=== PATIENT | female | born 1995 | race Caucasian/White ===

== ENCOUNTER 2016-08-12 14:31 | Emergency (ER) | payer OTHER ==
[~2016-08-12 14:31] MED LIST: PEPCID40 MG PO
--- NOTE | 2016-08-12 16:14 | ED CLINICAL REPORT ---
Clinical Report - Physicians/Mid Levels [facility] [address] [place] [address] 08/12/2016 14:33 [id number] Time Seen: 14:49 Mar 2016. Arrived- By private vehicle. Historian- patient. HISTORY OF PRESENT ILLNESS Chief Complaint: VOMITING. This started just prior to arrival and is still present. No recent travel. She has had nausea, vomiting and bloody stools. The illness is described as mild. (Patient reports dark blood emesis, as well as dark blood from rectum. Stool otherwise light brown. Reports some mild pain. He denies history of similar. Reports family history of chrohs). REVIEW OF SYSTEMS No fever, difficulty with urination, headache, dizziness or difficulty breathing. All systems otherwise negative, except as recorded above. PAST HISTORY No history of peptic ulcer. ADDITIONAL NOTES The nursing notes have been reviewed. PHYSICAL EXAM Vital Signs: 08/12/2016 14:44 BP: 140/75. HR: 93. RR: 16. O2 saturation: 95%. Temp: 98.4 F. Appearance: Alert. Eyes: Eyes normal inspection. ENT: Ears normal. CVS: Normal heart rate and rhythm. Heart sounds normal. Respiratory: No respiratory distress. Breath sounds normal. Abdomen: Soft and nontender. No mass. No abdominal tenderness, rebound tenderness or distention. Back: Normal inspection. No CVA tenderness. Rectal: Heme-positive stool; blood streaks present in the stool; hemoccult personnel quality assurance auditor check passed. (POC test reference range: negative). Skin: Skin warm. Normal skin color. Neuro: Oriented X 3. LABS, X-RAYS, AND EKG Laboratory Tests: UA-Culture if indicated: (PETER: 08/12/2016 15:00) ( MsgRcvd 08/12/2016 15:34) Final results Test Result Flag Units (Reference) URINE COLOR YELLOW URINE APPEARANCE CLEAR URINE GLUCOSE NEGATIVE (NEGATIVE) URINE BILIRUBIN NEGATIVE (NEGATIVE) URINE KETONE NEGATIVE (NEGATIVE) URINE SPECIFIC GRAVITY 1.020 (1.010-1.030) URINE PH 8.0 (5.0-8.0) URINE PROTEIN NEGATIVE (NEGATIVE) URINE UROBILINOGEN 0.2 EU/dL (0.2-1.0) URINE NITRITE NEGATIVE (NEGATIVE) URINE BLOOD NEGATIVE (NEGATIVE) URINE LEUK ESTERASE NEGATIVE (NEGATIVE) URINE RBC NONE SEEN rbc/hpf (0-1) URINE WBC 3-5 wbc/hpf (0-1) URINE EPITHELIAL CELLS 5-10 EPI/hpf (0-5) URINE BACTERIA FEW (1+) (NONE SEEN) URINE COMMENT CULT NOT INDICATED URINE CULTURES ARE SET-UP BASED ON THE FOLLOWING CRITERIA:POSITIVE NITRITEPOSITIVE LEUKOCYTE ESTERASEGREATER THAN 10 WHITE BLOOD CELLSMODERATE (2+) OR GREATER BACTERIA Urine: (PETER: 08/12/2016 15:00) ( [facility] 08/12/2016 15:17) Final results Test Result Flag Units (Reference) URINE NEGATIVE CBC w Diff: (PETER: 08/12/2016 14:58) ( [facility] 08/12/2016 15:10) Final results Test Result Flag Units (Reference) WHITE BLOOD COUNT 7.8 K/uL (4.5-11.5) RED BLOOD COUNT 4.35 M/uL (4.00-5.20) HEMOGLOBIN 13.0 gm/dL (12.0-16.0) HEMATOCRIT 37.7 % (36.0-46.0) MEAN CELL VOLUME 87 fL (80-100) MEAN CORPUSCULAR HGB 30 pg (26-34) MEAN CORPUSCULAR HGB CONC 34 g/dL (31-37) RED CELL DISTRIBUTION WIDTH 12.6 % (11.6-14.8) PLATELET COUNT 256 K/uL (150-400) NEUTROPHIL % 72.6 % (50-75) LYMPH % 21.2 L % (25-40) MONO % 5.6 % (3-14) EOSINOPHIL % 0.3 % (0-4) BASOPHIL % 0.3 % (0-2) PT with INR: (PETER: 08/12/2016 14:58) ( [facility] 08/12/2016 15:45) Final results Test Result Flag Units (Reference) INR 1.0 (0.8-1.2) Low Intensity Therapy: INR 1.5-2.0 PT range 18.5-23.1Mod.Intensity Therapy: INR 2.0-3.0 PT range 23.1-31.5High Intensity Therapy: INR 2.5-3.5 PT range 27.4-35.5High Intensity Therapy 2: INR 3.0-4.0 PT range 31.5-39.3 APTT 29 SECONDS (24-34) CMP: (PETER: 08/12/2016 14:58) ( MsgRcvd 08/12/2016 16:01) Final results Test Result Flag Units (Reference) GLUCOSE 94 mg/dL (70-110) BUN 15 mg/dL (7-18) CREATININE 0.7 mg/dL (0.6-1.3) Estimated GFR >60 mL/min Estimated GFR- >60 mL/min Note: Persistent reduction over 3 months in eGFR<60 mL/min/1.73 m2 defines CKD. Patients with eGFR values>=60 mL/min/1.73 m2 may also have CKD if evidence ofpersistent proteinuria. Additional information may be foundat www.kidney.org. SODIUM 141 mmol/L (136-145) POTASSIUM 3.4 L mmol/L (3.5-5.1) CHLORIDE 105 mmol/L (98-107) CARBON DIOXIDE 25 mmol/L (21-32) CALCIUM 8.9 mg/dL (8.5-10.1) TOTAL PROTEIN 7.1 g/dL (6.4-8.2) ALBUMIN 3.7 g/dL (3.3-5.0) BILIRUBIN, TOTAL 0.2 mg/dL (0.0-1.0) ALKALINE PHOSPHATASE 48 U/L (46-116) AST (SGOT) 24 U/L (15-37) ALT (SGPT) 38 U/L (12-78) . PROGRESS AND PROCEDURES Course of Care: patient with Hemoccult-positive from rectum, however gastric content via NG tube with no sign of bleeding. Patient is stable. Discuss treatment options at this time, given strong family history of Crohn's, patient should follow with primary care doctor, possible GI, if the symptoms continue. H&H stable at this time. Vital signs stable. Patient euvolemic. To follow up outpatient. No signs of surgical abdomen. Patient is pain-free. 08/12/2016 16:14 BP: 135/80. HR: 88. RR: 16. O2 saturation: 98%. Temp: 98.3 F. Patient is stable. Symptoms better. Patient/family counseled. Disposition: Discharged. CLINICAL IMPRESSION Minor GI bleed with hematemesis. INSTRUCTIONS Drink plenty of fluids. Avoid alcohol and NSAIDS. NSAIDS include aspirin, ibuprofen (Advil) and naproxen (Aleve). Avoid fatty, fried/greasy, lactose-containing (such as milk, cheese and ice cream), salty and spicy foods. Prescription Medications: Zofran (orally disintegrating tablets) 4 mg: take 1 orally every 6 hours for 3 days as needed for nausea and vomiting. Dispense ten (10). No refill. Substitution is permissible. Protonix 40 mg tablets: take 1 tablet orally for 2 weeks. Dispense fourteen (14). No refill. OTC Medications: Take acetaminophen (Tylenol, Datril, etc.) according to label instructions. Available over the counter. Follow-up: Follow up with doctor Sunday. (Electronically signed by Samantha Montague P.A.-C 08/12/2016 16:17)
--- NOTE | 2016-08-12 16:14 | ED ORDER SUMMARY ---
..... Patient: GUCCI HEADLEY OrderSheet [facility] VisitID: [id number] [place] [address] 20y, F Registration Date/Time: 08/12/2016 ORDER SHEET Weight: 81.6 kg (stated) Allergies: No Known Drug Allergy GENERAL ORDERS: NG Tube (lavage till clear) (14:49 08/12/2016 EKoroleva P.A.-C) (15:32 SReitz R.N.) CBC w Diff Urgent (14:49 08/12/2016 EKoroleva P.A.-C) (Ack 14:51 RKaruga) (15:01 KWilliams R.N.) CMP Urgent (14:49 08/12/2016 EKoroleva P.A.-C) (Ack 14:51 RKaruga) (15:01 KWilliams R.N.) UA-Culture if indicated Urgent (14:49 08/12/2016 EKoroleva P.A.-C) (Ack 14:51 RKaruga) (15:06 KWilliams R.N.) PT with INR Urgent (14:49 08/12/2016 EKoroleva P.A.-C) (Ack 14:51 RKaruga) (15:01 KWilliams R.N.) PTT Urgent (14:49 08/12/2016 EKoroleva P.A.-C) (Ack 14:51 RKaruga) (15:01 KWilliams R.N.) Urine Urgent (14:49 08/12/2016 EKoroleva P.A.-C) (Ack 14:51 RKaruga) (15:06 KWilliams R.N.) MEDICATION ORDERS: IV FLUIDS: IV NS : initial bolus 1000 mL (1000 mL/hr), then 10 mL/hr for X1 (NOW); Devang (14:48 08/12/2016 EKoroleva P.A.-C) (15:07 KWilliams R.N.) ORDER SHEET NOTES: [Electronically signed by Samantha Montague PJoaquinaAJoaquina-C (16:17 08/12/2016)] [Electronically signed by Rossy Xie R.N. (17:08/12/2016)] [Electronically locked/signed by Rossy Xie R.N. (17:08/12/2016)]
--- NOTE | 2016-08-12 16:14 | ED ORDER SUMMARY ---
..... Patient: GUCCI HEADLEY OrderSheet [facility] VisitID: [id number] [place] [address] 20y, F Registration Date/Time: 08/12/2016 ORDER SHEET Weight: 81.6 kg (stated) Allergies: No Known Drug Allergy GENERAL ORDERS: NG Tube (lavage till clear) (14:49 08/12/2016 EKoroleva P.A.-C) (15:32 SReitz R.N.) CBC w Diff Urgent (14:49 08/12/2016 EKoroleva P.A.-C) (Ack 14:51 RKaruga) (15:01 KWilliams R.N.) CMP Urgent (14:49 08/12/2016 EKoroleva P.A.-C) (Ack 14:51 RKaruga) (15:01 KWilliams R.N.) UA-Culture if indicated Urgent (14:49 08/12/2016 EKoroleva P.A.-C) (Ack 14:51 RKaruga) (15:06 KWilliams R.N.) PT with INR Urgent (14:49 08/12/2016 EKoroleva P.A.-C) (Ack 14:51 RKaruga) (15:01 KWilliams R.N.) PTT Urgent (14:49 08/12/2016 EKoroleva P.A.-C) (Ack 14:51 RKaruga) (15:01 KWilliams R.N.) Urine Urgent (14:49 08/12/2016 EKoroleva P.A.-C) (Ack 14:51 RKaruga) (15:06 KWilliams R.N.) MEDICATION ORDERS: IV FLUIDS: IV NS : initial bolus 1000 mL (1000 mL/hr), then 10 mL/hr for X1 (NOW); Devang (14:48 08/12/2016 EKoroleva P.A.-C) (15:07 KWilliams R.N.) ORDER SHEET NOTES: [Electronically signed by Samantha Montague PJoaquinaAJoaquina-C (16:17 08/12/2016)] [Electronically signed by Rossy Xie R.N. (17:08/12/2016)] [Electronically locked/signed by Rossy Xie R.N. (17:08/12/2016)]
--- NOTE | 2016-08-12 16:14 | ED NURSING NOTES ---
Clinical Report - Nurses [facility] [address] [place] [address] 08/12/2016 14:33 Patient: GUCCI HEADLEY TRIAGE Triage time 14:39. Acuity: LEVEL 3. Chief Complaint: VOMITING. 14:48 08/12/16. Alert. No acute distress. SEPSIS SCREEN: Sepsis Screen. Negative (no infection suspected/documented). --14:48 Barbie Shah R.N. 14:44 08/12/16. BP: 140/75. HR: 93. RR: 16. O2 saturation: 95% on room air. Temp: 98.4 F (oral). Pain level now 0/10. --14:48 Barbie Shah R.N. Weight: 81.6 kg stated. Height/Length: 71 inches Per Patient. BMI: 25.1. --14:44 Barbie Shah R.N. Medications None. --14:47 Barbie Shah R.N. Allergies No Known Drug Allergy. --14:47 Barbie Shah R.N. Medication/allergy information source: the patient. --14:48 Barbie Shah R.N. History Arrived by private vehicle. Historian: patient. Primary physician (sidney). ( c/o emesis x1 this morning with dark red blood. States she also had one episode of dark red blood in brown stool this morning. Denies nausea at this time.). This started today. Treatment OBSTETRICAL TECH: None. SOCIAL HX: Never smoker. Alcohol use; consumes four glasses of wine daily. History of drug use: marijuana. ABUSE ASSESSMENT: Abuse assessment: The patient was asked "Do you feel safe in your home?". No report of abuse. FALL RISK ASSESSMENT: Fall risk assessment completed. No fall risk identified. NUTRITIONAL RISK ASSESSMENT: The nutritional risk assessment revealed no deficiencies. FUNCTIONAL ASSESSMENT: Functional assessment: no impairments noted. LEARNING NEEDS ASSESSMENT: The learning needs assessment revealed no barriers. SKIN INTEGRITY ASSESSMENT: Skin integrity risk assessment completed. No skin integrity risk identified. --14:48 Barbie Shah R.N. PAST MEDICAL HX: Last normal menstrual period was 2 weeks ago. Denies current . --14:48 Barbie Shah R.N. PROBLEMS: UTI - Urinary Tract Infection. Abdominal Pain. --14:47 Barbie Shah R.N. ADDITIONAL SURGERIES: Tonsillectomy. --14:47 Barbie Shah R.N. Interventions ID band on patient. To treatment room. --14:48 Barbie Shah R.N. PHYSICAL ASSESSMENT 14:48 08/12/16. Ambulatory to room. GENERAL / NEURO / PSYCH: Alert. Oriented X 4. Appears in no acute distress. HEENT: Mucous membranes are pink. RESPIRATORY: Respirations not labored. CVS: Capillary refill less than 2 seconds. GI / : Abdomen soft and nontender. SKIN: Skin is warm and dry. --14:48 Barbie Shah R.N. NURSING PROGRESS NOTES 14:49 08/12/16. The plan of care for this patient has been created. Patient gowned. Head of bed elevated. Call light placed in reach. Bed placed in lowest position. Brakes of bed on. Patient ready for evaluation- chart flagged. --14:49 Barbie Shah R.N. 14:52 08/12/2016 Site #1 started via IV in the right antecubital space with an 20g angiocath, with aseptic technique and good blood return; one attempt. Blood drawn: rainbow set. Labeled in the presence of the patient and sent to the lab. Saline lock flushed with 10 mL saline. --15:07 Barbie Shah R.N. 15:02 08/12/2016 Started bag #1 1000 mL IV Fluids IV NS (Saline); at 999 mL/hr over 1 hour(s) via site #1. Allergies verified and confirmed 5 rights. IV patency established. IV site checked: no pain, redness, or swelling. IV flushed thoroughly pre- and post-medication administration. --15:07 Barbie Shah R.N. 15:08 08/12/16. Patient ID band checked for patient name and birthdate: patient confirmed. Instructions provided to collect clean catch urine and patient verbalized understanding. Clean catch urine collected with return of yellow-colored cloudy urine; odor is normal; sample sent to lab for urinalysis and HCG. Specimen labeled in the presence of the patient. --15:08 Barbie Shah R.N. 16 fr NG tube inserted in right nostril with no difficulty. Placement confirmed by return of gastric contents. Return: yellow fluid. Tube secured. Attached to low suction. Patient tolerated procedure well. (pt. lavaged until clear. Output 400cc.). --15:32 Rossy Xie R.N. Care transferred and report received (from Joy, RN). --15:32 Rossy Xie R.N. 16:10 08/12/2016 IV Fluids IV NS Discontinued: bag #1 infused. Total amount infused: 1000 mL. --16:14 Rossy Xie R.N. DISPOSITION / DISCHARGE 16:14 08/12/2016 Site #1 removed upon discharge. Catheter intact. Manual pressure and bandaid applied. --16:14 Rossy Xie R.N. 16:14 08/12/16. BP: 135/80. HR: 88. RR: 16. O2 saturation: 98%. Temp: 98.3 F. Pain level now 0/10. --16:15 Rossy Xie R.N. 16:14. Condition at departure: stable. No learning barriers present. Discharge instructions provided and reviewed with the patient. Reviewed medication(s) side effects, precautions, dosing and course information. Prescription(s) given to the patient. Reviewed referral to family practice for followup. Patient verbalized understanding. Written instructions provided in [place]. The patient was discharged home and accompanied by family. She left the Emergency Department ambulatory and via private vehicle. Family member driving. Medication list reviewed and validated. --16:29 Rossy Xie R.N. Departure time: 1614. --16:29 Rossy Xie R.N. Locked/Released at 08/12/2016 17:07 by Rossy Xie R.N.
--- NOTE | 2016-08-12 16:14 | ED CLINICAL REPORT ---
Clinical Report - Physicians/Mid Levels [facility] [address] [place] [address] 08/12/2016 14:33 [id number] Time Seen: 14:49 Mar 2016. Arrived- By private vehicle. Historian- patient. HISTORY OF PRESENT ILLNESS Chief Complaint: VOMITING. This started just prior to arrival and is still present. No recent travel. She has had nausea, vomiting and bloody stools. The illness is described as mild. (Patient reports dark blood emesis, as well as dark blood from rectum. Stool otherwise light brown. Reports some mild pain. He denies history of similar. Reports family history of chrohs). REVIEW OF SYSTEMS No fever, difficulty with urination, headache, dizziness or difficulty breathing. All systems otherwise negative, except as recorded above. PAST HISTORY No history of peptic ulcer. ADDITIONAL NOTES The nursing notes have been reviewed. PHYSICAL EXAM Vital Signs: 08/12/2016 14:44 BP: 140/75. HR: 93. RR: 16. O2 saturation: 95%. Temp: 98.4 F. Appearance: Alert. Eyes: Eyes normal inspection. ENT: Ears normal. CVS: Normal heart rate and rhythm. Heart sounds normal. Respiratory: No respiratory distress. Breath sounds normal. Abdomen: Soft and nontender. No mass. No abdominal tenderness, rebound tenderness or distention. Back: Normal inspection. No CVA tenderness. Rectal: Heme-positive stool; blood streaks present in the stool; hemoccult director of quality check passed. (POC test reference range: negative). Skin: Skin warm. Normal skin color. Neuro: Oriented X 3. LABS, X-RAYS, AND EKG Laboratory Tests: UA-Culture if indicated: (PETER: 08/12/2016 15:00) ( MsgRcvd 08/12/2016 15:34) Final results Test Result Flag Units (Reference) URINE COLOR YELLOW URINE APPEARANCE CLEAR URINE GLUCOSE NEGATIVE (NEGATIVE) URINE BILIRUBIN NEGATIVE (NEGATIVE) URINE KETONE NEGATIVE (NEGATIVE) URINE SPECIFIC GRAVITY 1.020 (1.010-1.030) URINE PH 8.0 (5.0-8.0) URINE PROTEIN NEGATIVE (NEGATIVE) URINE UROBILINOGEN 0.2 EU/dL (0.2-1.0) URINE NITRITE NEGATIVE (NEGATIVE) URINE BLOOD NEGATIVE (NEGATIVE) URINE LEUK ESTERASE NEGATIVE (NEGATIVE) URINE RBC NONE SEEN rbc/hpf (0-1) URINE WBC 3-5 wbc/hpf (0-1) URINE EPITHELIAL CELLS 5-10 EPI/hpf (0-5) URINE BACTERIA FEW (1+) (NONE SEEN) URINE COMMENT CULT NOT INDICATED URINE CULTURES ARE SET-UP BASED ON THE FOLLOWING CRITERIA:POSITIVE NITRITEPOSITIVE LEUKOCYTE ESTERASEGREATER THAN 10 WHITE BLOOD CELLSMODERATE (2+) OR GREATER BACTERIA Urine: (PETER: 08/12/2016 15:00) ( [facility] 08/12/2016 15:17) Final results Test Result Flag Units (Reference) URINE NEGATIVE CBC w Diff: (PETER: 08/12/2016 14:58) ( [facility] 08/12/2016 15:10) Final results Test Result Flag Units (Reference) WHITE BLOOD COUNT 7.8 K/uL (4.5-11.5) RED BLOOD COUNT 4.35 M/uL (4.00-5.20) HEMOGLOBIN 13.0 gm/dL (12.0-16.0) HEMATOCRIT 37.7 % (36.0-46.0) MEAN CELL VOLUME 87 fL (80-100) MEAN CORPUSCULAR HGB 30 pg (26-34) MEAN CORPUSCULAR HGB CONC 34 g/dL (31-37) RED CELL DISTRIBUTION WIDTH 12.6 % (11.6-14.8) PLATELET COUNT 256 K/uL (150-400) NEUTROPHIL % 72.6 % (50-75) LYMPH % 21.2 L % (25-40) MONO % 5.6 % (3-14) EOSINOPHIL % 0.3 % (0-4) BASOPHIL % 0.3 % (0-2) PT with INR: (PETER: 08/12/2016 14:58) ( [facility] 08/12/2016 15:45) Final results Test Result Flag Units (Reference) INR 1.0 (0.8-1.2) Low Intensity Therapy: INR 1.5-2.0 PT range 18.5-23.1Mod.Intensity Therapy: INR 2.0-3.0 PT range 23.1-31.5High Intensity Therapy: INR 2.5-3.5 PT range 27.4-35.5High Intensity Therapy 2: INR 3.0-4.0 PT range 31.5-39.3 APTT 29 SECONDS (24-34) CMP: (PETER: 08/12/2016 14:58) ( MsgRcvd 08/12/2016 16:01) Final results Test Result Flag Units (Reference) GLUCOSE 94 mg/dL (70-110) BUN 15 mg/dL (7-18) CREATININE 0.7 mg/dL (0.6-1.3) Estimated GFR >60 mL/min Estimated GFR- >60 mL/min Note: Persistent reduction over 3 months in eGFR<60 mL/min/1.73 m2 defines CKD. Patients with eGFR values>=60 mL/min/1.73 m2 may also have CKD if evidence ofpersistent proteinuria. Additional information may be foundat www.kidney.org. SODIUM 141 mmol/L (136-145) POTASSIUM 3.4 L mmol/L (3.5-5.1) CHLORIDE 105 mmol/L (98-107) CARBON DIOXIDE 25 mmol/L (21-32) CALCIUM 8.9 mg/dL (8.5-10.1) TOTAL PROTEIN 7.1 g/dL (6.4-8.2) ALBUMIN 3.7 g/dL (3.3-5.0) BILIRUBIN, TOTAL 0.2 mg/dL (0.0-1.0) ALKALINE PHOSPHATASE 48 U/L (46-116) AST (SGOT) 24 U/L (15-37) ALT (SGPT) 38 U/L (12-78) . PROGRESS AND PROCEDURES Course of Care: patient with Hemoccult-positive from rectum, however gastric content via NG tube with no sign of bleeding. Patient is stable. Discuss treatment options at this time, given strong family history of Crohn's, patient should follow with primary care doctor, possible GI, if the symptoms continue. H&H stable at this time. Vital signs stable. Patient euvolemic. To follow up outpatient. No signs of surgical abdomen. Patient is pain-free. 08/12/2016 16:14 BP: 135/80. HR: 88. RR: 16. O2 saturation: 98%. Temp: 98.3 F. Patient is stable. Symptoms better. Patient/family counseled. Disposition: Discharged. CLINICAL IMPRESSION Minor GI bleed with hematemesis. INSTRUCTIONS Drink plenty of fluids. Avoid alcohol and NSAIDS. NSAIDS include aspirin, ibuprofen (Advil) and naproxen (Aleve). Avoid fatty, fried/greasy, lactose-containing (such as milk, cheese and ice cream), salty and spicy foods. Prescription Medications: Zofran (orally disintegrating tablets) 4 mg: take 1 orally every 6 hours for 3 days as needed for nausea and vomiting. Dispense ten (10). No refill. Substitution is permissible. Protonix 40 mg tablets: take 1 tablet orally for 2 weeks. Dispense fourteen (14). No refill. OTC Medications: Take acetaminophen (Tylenol, Datril, etc.) according to label instructions. Available over the counter. Follow-up: Follow up with doctor Sunday. (Electronically signed by Samantha Montague P.A.-C 08/12/2016 16:17)
--- NOTE | 2016-08-12 17:07 | ED MAR SUMMARY ---
..... Medication Administration Record [facility] [address] [place] [address] Patient: GUCCI HEADLEY Visit ID: [id number] 20y, F Weight: 81.6 kg Height/Length: 71 in BMI: 25.1 ALLERGIES: No Known Drug Allergy Start 15:02 08/12/2016 Barbie Shah RAna, Stop 16:10 08/12/2016 Rossy Xie RJoaquinaNJoaquina Medication Administered: IV NS (SALINE), Dose: IV Fluids over 1 hour(s), Rate: 999 mL/hr, Dispensed: 1000 mL bag, Site: #1 right AC. Medication Ordered: IV NS : initial bolus 1000 mL (1000 mL/hr), then 10 mL/hr for X1 (NOW); Devang.
--- NOTE | 2016-08-12 17:07 | ED MED RECONCILIATION SUMMARY ---
Patient: GUCCI HEADLEY Medication Reconciliation Report [facility] VisitID: [id number] [place] [address] 20y, F Registration Date/Time: 08/12/2016 Weight: 81.6 kg Height/Length: 71 in. BMI: 25.1 ALLERGIES: No Known Drug Allergy The patient's Home Medications are listed below: NONE. The source(s) of the original Home Medication information: patient The following Medications were given to the patient in the Emergency Department: IV NS IV Fluids bolus 0, then 999 mL/hr, administered: 08/12/2016 3:02:00 PM The following Medications were prescribed to the patient: Take acetaminophen (Tylenol, Datril, etc.) according to label instructions. Available over the counter. -- Samantha Montague, P.A.-C Zofran (orally disintegrating tablets) 4 mg: take 1 orally every 6 hours for 3 days as needed for nausea and vomiting. Dispense ten (10). No refill. Substitution is permissible. -- Samantha Montague, P.A.-C Protonix 40 mg tablets: take 1 tablet orally for 2 weeks. Dispense fourteen (14). No refill. -- Samantha Montague, P.A.-C
--- NOTE | 2016-08-12 17:07 | ED DISCHARGE INSTRUCTIONS ---
Patient: GUCCI HEADLEY General Instructions [facility] VisitID: [id number] [place] [address] 20y, F Registration Date/Time: 08/12/2016 Minor GI bleed with hematemesis. INSTRUCTIONS Drink plenty of fluids. Avoid alcohol and NSAIDS. NSAIDS include aspirin, ibuprofen (Advil) and naproxen (Aleve). Avoid fatty, fried/greasy, lactose-containing (such as milk, cheese and ice cream), salty and spicy foods. Prescription Medications: Zofran (orally disintegrating tablets) 4 mg: take 1 orally every 6 hours for 3 days as needed for nausea and vomiting. Dispense ten (10). No refill. Substitution is permissible. Protonix 40 mg tablets: take 1 tablet orally for 2 weeks. Dispense fourteen (14). No refill. OTC Medications: Take acetaminophen (Tylenol, Datril, etc.) according to label instructions. Available over the counter. Follow-up: Follow up with doctor Sunday. ADDITIONAL INFORMATION GI Bleeding (Upper), Stable There are signs that you have bled from your upper intestinal tract (esophagus, stomach or upper intestine). This may be due to: Repeated vomiting which may cause a small tear in the lining of the esophagus, An ulcer in the stomach or duodenum (upper intestine) Severe gastritis (from use of alcohol, aspirin or anti-inflammatory drugs) Esophageal varices (enlarged veins in the esophagus) may also cause bleeding like this. Your exam today showed that you have not lost a large amount of blood and your condition is stable. Bleeding from the upper GI tract causes the stool to turn black. Home Care: 1) If your bleeding is due to an ulcer or gastritis, an acid-blocking medicine will help. Unless an acid amna was prescribed (or if you cannot afford one that was prescribed), you may use spau-bgs-emxcief drugs such as Pepcid AC (famotidine), Tagamet (cimetidine) or Zantac (ranitidine). These begin to work within a few hours. Prilosec OTC (omeprazole) is a new type of acid amna which may be more effective. It takes up to four days for its full effect. You may get additional short-term relief by taking antacids (Mylanta or Maalox). It should be taken one hour after meals and at bedtime. Do not take Tagamet (cimetidine), Zantac (ranitidine) or Carafate (sucralfate) within one hour of an antacid. 2) Avoid factors which increase stomach acid. These include cigarettes, caffeine (coffee, raul, teas) and stress. 3) Avoid substances that irritate your stomach. These include aspirin and anti-inflammatory drugs (such as ibuprofen, Advil, Motrin, naproxen, Aleve, Naprosyn), alcohol and spicy foods. Prednisone and related prescription drugs can cause an ulcer. Discuss with your doctor if you are taking these. 4) Take any prescribed medicine as directed to promote healing. 5) If alcohol is a possible cause of your GI bleeding, it is urgent that you talk with your doctor about ways to help you quit. Follow Up with your doctor as advised. Get Prompt Medical Attention if any of the following occur: -- Stomach pain worsens -- Pain appears, worsens or spreads to the neck, back, shoulder or arm -- You vomit blood (red or black color) -- You feel weak or dizzy, or you faint -- You have fever or abdominal swelling -- Red blood in the stool Rectal Bleeding (Stable) Your exam today shows signs of blood in the stool. This is called rectal bleeding, because the blood passes through the rectum. However, the blood may not be coming from the rectum. Blood in the stool may be red or black in color. Red blood in the stool usually comes from the lower gastro-intestinal (GI) tract. This may be due to diverticulosis, polyps, colon inflammation or infection, anal fissure or hemorrhoids. In persons over 50 tumors and cancer of the intestinal tract may first show up as red blood in the stool. Upper GI bleeding causes the stool to turn black. This may occur with bleeding from the esophagus, stomach, duodenum or small intestine. Very small amounts of GI bleeding may not be visible and can only be discovered on a chemical test of the stool. You have not lost a large amount of blood and your condition appears stable at this time. It is very important to have a follow-up exam to determine the exact cause of your bleeding. Home Care: 1) You may resume normal activity as long as you feel well. 2) Avoid aspirin and anti-inflammatory drugs such as ibuprofen (Advil, Motrin) and naproxen (Aleve and Naprosyn). You may use acetaminophen (Tylenol) for pain. [ NOTE : If you have chronic liver disease, talk with your doctor before using acetaminophen.] 3) Avoid alcohol. Follow Up with your doctor or as advised by our medical staff. It is very important that you have further tests done to find the cause of your bleeding. Get Prompt Medical Attention if any of the following occur: -- Large amount of rectal bleeding (more than 1 cup of blood in 24 hours) -- Increasing abdominal pain -- Weakness, dizziness or fainting -- Vomiting blood (red or black color) Rectal Bleeding (Stable) Your exam today shows signs of blood in the stool. This is called rectal bleeding, because the blood passes through the rectum. However, the blood may not be coming from the rectum. Blood in the stool may be red or black in color. Red blood in the stool usually comes from the lower gastro-intestinal (GI) tract. This may be due to diverticulosis, polyps, colon inflammation or infection, anal fissure or hemorrhoids. In persons over 50 tumors and cancer of the intestinal tract may first show up as red blood in the stool. Upper GI bleeding causes the stool to turn black. This may occur with bleeding from the esophagus, stomach, duodenum or small intestine. Very small amounts of GI bleeding may not be visible and can only be discovered on a chemical test of the stool. You have not lost a large amount of blood and your condition appears stable at this time. It is very important to have a follow-up exam to determine the exact cause of your bleeding. Home Care: 1) You may resume normal activity as long as you feel well. 2) Avoid aspirin and anti-inflammatory drugs such as ibuprofen (Advil, Motrin) and naproxen (Aleve and Naprosyn). You may use acetaminophen (Tylenol) for pain. [ NOTE : If you have chronic liver disease, talk with your doctor before using acetaminophen.] 3) Avoid alcohol. Follow Up with your doctor or as advised by our medical staff. It is very important that you have further tests done to find the cause of your bleeding. Get Prompt Medical Attention if any of the following occur: -- Large amount of rectal bleeding (more than 1 cup of blood in 24 hours) -- Increasing abdominal pain -- Weakness, dizziness or fainting -- Vomiting blood (red or black color) Rolette Diet A bland diet is used for patients with an upset stomach. It consists of foods that are mild and easy to digest. It is better to eat small frequent meals rather than three large meals a day. BEVERAGES OK: Fruit juices, non-caffeinated teas and coffee, non-carbonated menchaca AVOID: Carbonated beverage, caffeinated tea and coffee, all alcoholic beverages BREAD OK: Refined white, wheat or rye bread, anitha or soda crackers, Claudia toast, plain rolls, bagels AVOID: Whole-grain bread CEREAL OK: Refined cereals: cooked or ready to eat AVOID: Whole grain cereals and granola, or those containing bran, seeds or nuts DESSERTS OK: Peanut butter and all others except those to "avoid" AVOID: Chocolate, cocoa, coconut, popcorn, nuts, seeds, jam, marmalade FRUITS OK: Canned, cooked, frozen or fresh fruits without seeds or tough skin AVOID: Olives, skin and seeds of fruit MEATS OK: All fresh or preserved meat, fish and fowl AVOID: Any that are prepared with those spices to "avoid" CHEESE & EGGS OK: Eggs, cottage cheese, cream cheese, other cheeses AVOID: All cheeses made with those spices to "avoid" POTATOES & PASTA OK: Potato, rice, macaroni, noodles, spaghetti AVOID: None SOUPS OK: All soups without heavy seasoning AVOID: Soups made with those spices to "avoid" VEGETABLES OK: Canned, cooked, fresh or frozen mildly flavored vegetables without seeds, skins or coarse fiber AVOID: Vegetables prepared with those spices to "avoid"; skin and seeds of vegetables and those with coarse fiber SPICES OK: Salt, lemon and [place] juice, vinegar, all extracts, gio, cinnamon, thyme, mace, allspice, paprika AVOID: Lockhart powder, cloves, pepper, seed spices, garlic, gravy pickles, highly seasoned salad dressings Clear Liquid Diet Clear liquids are any liquid that you can see through as well as those that are very easy to digest. This is used while the body is recovering from irritation or infection of the stomach or intestinal tract. It may also be used before special procedures or surgery. This diet is to be used no more than three days. You may include the following items. Adults Adults should drink a total of 23 quarts of liquid per day. It may be easier to drink small frequent servings rather than a few large ones. Liquids can include: Fruit juices.Strained orange juice or lemonade (no pulp), apple, grape and cranberry juice, clear fruit drinks, sports drinks Beverages.Sport drinks, sodas, mineral water (plain or flavored), tea, black coffee, liquid gelatin (add twice the recommended amount of water) Soups.Clear broth, consomm, bouillon Desserts.Plain gelatin, popsicles, fruit juice bars Children Over 2 years old The following liquids are acceptable for children over age 2: Fruit juices.Strained orange juice or lemonade (no pulp), apple, grape and cranberry juice, clear fruit drinks Beverages. Sports drinks, sodas, mineral water (plain or flavored), tea, liquid gelatin (add twice the recommended amount of water) Soups. Clear broth, consomm, bouillon Desserts. Plain gelatin, popsicles, fruit juice bars Children under 2 years old Oral rehydration fluids such are available at drug stores and most grocery stores without a prescription. Ondansetron Hydrochloride Oral tablet What is this medicine? ONDANSETRON (on FLAKITO se vicente) is used to treat nausea and vomiting caused by chemotherapy. It is also used to prevent or treat nausea and vomiting after surgery. How should I use this medicine? Take this medicine by mouth with a glass of water. Follow the directions on your prescription label. Take your doses at regular intervals. Do not take your medicine more often than directed. Talk to your instructor ballroom dancing regarding the use of this medicine in children. Special care may be needed. What side effects may I notice from receiving this medicine? Side effects that you should report to your doctor or health career development associate as soon as possible: allergic reactions like skin rash, itching or hives, swelling of the face, lips or tongue breathing problems dizziness fast or irregular heartbeat feeling faint or lightheaded, falls fever and chills swelling of the hands or feet tightness in the chest Side effects that usually do not require medical attention (report to your doctor or health career development associate if they continue or are bothersome): constipation or diarrhea headache What may interact with this medicine? Do not take this medicine with any of the following medications: -apomorphine -cisapride -dofetilide -dronedarone -pimozide -thioridazine -ziprasidone This medicine may also interact with the following medications: -carbamazepine -phenytoin -rifampicin -tramadol -other medicines that prolong the QT interval (cause an abnormal heart rhythm) What if I miss a dose? If you miss a dose, take it as soon as you can. If it is almost time for your next dose, take only that dose. Do not take double or extra doses. Where should I keep my medicine? Keep out of the reach of children. Store between 2 and 30 degrees C (36 and 86 degrees F). Throw away any unused medicine after the expiration date. What should I tell my health care provider before I take this medicine? They need to know if you have any of these conditions: heart disease history of irregular heartbeat liver disease low levels of magnesium or potassium in the blood an unusual or allergic reaction to ondansetron, granisetron, other medicines, foods, dyes, or preservatives or trying to get breast-feeding What should I watch for while using this medicine? Check with your doctor or health career development associate right away if you have any sign of an allergic reaction. Pantoprazole Sodium Gastro-resistant tablet What is this medicine? PANTOPRAZOLE (deras TOE pra zole) prevents the production of acid in the stomach. It is used to treat gastroesophageal reflux disease (GERD), inflammation of the esophagus, and Isaiah-Dumont syndrome. How should I use this medicine? Take this medicine by mouth. Swallow the tablets whole with a drink of water. Follow the directions on the prescription label. Do not crush, break, or chew. Take your medicine at regular intervals. Do not take your medicine more often than directed. Talk to your instructor ballroom dancing regarding the use of this medicine in children. While this drug may be prescribed for children as young as 5 years for selected conditions, precautions do apply. What side effects may I notice from receiving this medicine? Side effects that you should report to your doctor or health career development associate as soon as possible: allergic reactions like skin rash, itching or hives, swelling of the face, lips, or tongue bone, muscle or joint pain breathing problems chest pain or chest tightness dark yellow or brown urine dizziness fast, irregular heartbeat feeling faint or lightheaded fever or sore throat muscle spasm palpitations redness, blistering, peeling or loosening of the skin, including inside the mouth seizures tremors unusual bleeding or bruising unusually weak or tired yellowing of the eyes or skin Side effects that usually do not require medical attention (Report these to your doctor or health career development associate if they continue or are bothersome.): constipation diarrhea dry mouth headache nausea What may interact with this medicine? Do not take this medicine with any of the following medications: atazanavir nelfinavir This medicine may also interact with the following medications: ampicillin delavirdine digoxin diuretics iron salts medicines for fungal infections like ketoconazole, itraconazole and voriconazole warfarin What if I miss a dose? If you miss a dose, take it as soon as you can. If it is almost time for your next dose, take only that dose. Do not take double or extra doses. Where should I keep my medicine? Keep out of the reach of children. Store at room temperature between 15 and 30 degrees C (59 and 86 degrees F). Protect from light and moisture. Throw away any unused medicine after the expiration date. What should I tell my health care provider before I take this medicine? They need to know if you have any of these conditions: liver disease low levels of magnesium in the blood an unusual or allergic reaction to omeprazole, lansoprazole, pantoprazole, rabeprazole, other medicines, foods, dyes, or preservatives or trying to get breast-feeding What should I watch for while using this medicine? It can take several days before your stomach pain gets better. Check with your doctor or health career development associate if your condition does not start to get better, or if it gets worse. You may need blood work done while you are taking this medicine. You have been given the following additional information: GI Bleed, Upper (Stable) Rectal Bleed, Stable Rectal Bleed, Stable Diet, Rolette (Adult) Diet, Clear Liquid Ondansetron Hydrochloride Oral tablet Pantoprazole Sodium Gastro-resistant tablet (Electronically signed by Samantha Montague P.A.-C 08/12/2016 16:17)
--- NOTE | 2016-08-12 17:07 | ED MAR SUMMARY ---
..... Medication Administration Record [facility] [address] [place] [address] Patient: GUCCI HEADLEY Visit ID: [id number] 20y, F Weight: 81.6 kg Height/Length: 71 in BMI: 25.1 ALLERGIES: No Known Drug Allergy Start 15:02 08/12/2016 Barbie Shah RAna, Stop 16:10 08/12/2016 Rossy Xie RJoaquinaNJoaquina Medication Administered: IV NS (SALINE), Dose: IV Fluids over 1 hour(s), Rate: 999 mL/hr, Dispensed: 1000 mL bag, Site: #1 right AC. Medication Ordered: IV NS : initial bolus 1000 mL (1000 mL/hr), then 10 mL/hr for X1 (NOW); Devang.
--- NOTE | 2016-08-12 17:07 | ED MED RECONCILIATION SUMMARY ---
Patient: GUCCI HEADLEY Medication Reconciliation Report [facility] VisitID: [id number] [place] [address] 20y, F Registration Date/Time: 08/12/2016 Weight: 81.6 kg Height/Length: 71 in. BMI: 25.1 ALLERGIES: No Known Drug Allergy The patient's Home Medications are listed below: NONE. The source(s) of the original Home Medication information: patient The following Medications were given to the patient in the Emergency Department: IV NS IV Fluids bolus 0, then 999 mL/hr, administered: 08/12/2016 3:02:00 PM The following Medications were prescribed to the patient: Take acetaminophen (Tylenol, Datril, etc.) according to label instructions. Available over the counter. -- Samantha Montague, P.A.-C Zofran (orally disintegrating tablets) 4 mg: take 1 orally every 6 hours for 3 days as needed for nausea and vomiting. Dispense ten (10). No refill. Substitution is permissible. -- Samantha Montague, P.A.-C Protonix 40 mg tablets: take 1 tablet orally for 2 weeks. Dispense fourteen (14). No refill. -- Samantha Montague, P.A.-C
== END 2016-08-12 16:14 | disposition home or self-care (01) ==
LOC: ED SRH 14:31
DX: K92.0 Hematemesis (principal)
CPT/HCPCS: 90004; 90100; 93070; 94001; 94060; 95059

== ENCOUNTER 2016-10-31 19:23 | Emergency (ER) | payer OTHER ==
--- NOTE | 2016-10-31 20:24 | ED CLINICAL REPORT ---
Clinical Report - Physicians/Mid Levels [facility] [address] [place] [address] 10/31/2016 19:23 Patient: GUCCI HEADLEY Time Seen: 19:42. Arrived- By private vehicle. Historian- patient. HISTORY OF PRESENT ILLNESS Chief Complaint: ; ;(LLE burn). Severity is described as being moderate. The quality is noted to be "pain". This started 2 days ago and is still present (Pt was cooking and grease splashed on the R index finger and L lower leg.). It was abrupt in onset. Symptoms located in the area of the left leg. Location: R index finger. The patient has had redness. No swelling, bladder dysfunction, bowel dysfunction, sensory loss or motor loss. No difficulty walking. Patient notes an injury. Similar symptoms previously: None. Recent medical care: Not recently seen/assessed. REVIEW OF SYSTEMS No cough, chest pain, difficulty breathing or fever. PAST HISTORY ( Catrina Cool PROBLEMS: GI Bleeding. UTI - Urinary Tract Infection. ADDITIONAL SURGERIES: Tonsillectomy.). SOCIAL HISTORY Never smoker. PHYSICAL EXAM Vital Signs: 10/31/2016 19:43 BP: 138/76. HR: 77. RR: 16. O2 saturation: 99%. Temp: 98.6 F. Pain level now: 0/10. Extremities: Right hand. Neurovascular intact distally. (Small area of second degree burn on R index finger. Nl ROM and tendon function.). Left leg. Neurovascular intact distally. (Scattered areas of 1 and 2nd degree seg[place]ia. Less than 1% TBSA). PROGRESS AND PROCEDURES Course of Care: Wounds washed and dressed with Silvadine cream. Tdap given. Disposition: Discharged. Condition: stable. CLINICAL IMPRESSION First degree burn to the right index finger and left lower leg. Second degree burn to the right index finger and left lower leg. INSTRUCTIONS (DAILY WASH, DRY AND APPLY SILVIDINE OINTMENT. MOVE THE INDEX FINGER THROUGH COMPLETE RANGE OF MOTION FREQUENTLY RECHECK IN 5 DAYS. IMMEDIATE RECHECK IF WORSE.). Prescription Medications: Silvadene cream 1% : apply to affected area daily. Dispense twenty (20) grams. No refill. Substitution is permissible Follow-up: Follow up with doctor MIKAEL COOL. Understanding of the discharge instructions verbalized by patient and family. (Electronically signed by Valentin Bangura MD 11/03/2016 12:59)
--- NOTE | 2016-10-31 20:24 | ED ORDER SUMMARY ---
..... Patient: GUCCI HEADLEY OrderSheet [facility] VisitID: [id number] [place] [address] 20y, F Registration Date/Time: 10/31/2016 ORDER SHEET Weight: 99.7 kg (stated) Allergies: No Known Drug Allergy GENERAL ORDERS: - (dressing and silvadine to finger and leg) (20:10 10/31/2016 Dia HUANG) MEDICATION ORDERS: Tdap IM 0.5 mL (NOW) (20:09 10/31/2016 Dia HUANG) (Ack 20:15 JQuivey R.N.) (20:22 JQuiveladonna R.N.) IV FLUIDS: ORDER SHEET NOTES: [Electronically signed by Corky Escobedo R.N. (21:08 10/31/2016)] [Electronically signed by Valentin Bangura MD (12:59 11/03/2016)] [Electronically locked/signed by Corky Escobedo R.N. (21:08 10/31/2016)]
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
--- NOTE | 2016-10-31 20:24 | ED ORDER SUMMARY ---
..... Patient: GUCCI HEADLEY OrderSheet [facility] VisitID: [id number] [place] [address] 20y, F Registration Date/Time: 10/31/2016 ORDER SHEET Weight: 99.7 kg (stated) Allergies: No Known Drug Allergy GENERAL ORDERS: - (dressing and silvadine to finger and leg) (20:10 10/31/2016 Dia HUANG) MEDICATION ORDERS: Tdap IM 0.5 mL (NOW) (20:09 10/31/2016 Dia HUANG) (Ack 20:15 JQuivey R.N.) (20:22 JQuiveladonna R.N.) IV FLUIDS: ORDER SHEET NOTES: [Electronically signed by Corky Escobedo R.N. (21:08 10/31/2016)] [Electronically signed by Valentin Bangura MD (12:59 11/03/2016)] [Electronically locked/signed by Corky Escobedo R.N. (21:08 10/31/2016)]
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
--- NOTE | 2016-11-03 13:00 | ED MED RECONCILIATION SUMMARY ---
Patient: GUCCI HEADLEY Medication Reconciliation Report [facility] VisitID: [id number] [address] [place] [address] 20y, F Registration Date/Time: 10/31/2016 Weight: 99.7 kg Height/Length: 71 in. BMI: 30.7 ALLERGIES: No Known Drug Allergy The patient's Home Medications are listed below: THE FOLLOWING MEDICATIONS NEED TO BE RECONCILED: Amoxicillin Oral 875mg , 2 x daily The source(s) of the original Home Medication information: patient The following Medications were given to the patient in the Emergency Department: TDAP [IM] IM 0.5 mL, administered: 10/31/2016 8:22:00 PM The following Medications were prescribed to the patient: Silvadene cream 1% : apply to affected area daily. Dispense twenty (20) grams. No refill. Substitution is permissible -- Valentin Bangura MD
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
--- NOTE | 2016-11-03 13:00 | ED MED RECONCILIATION SUMMARY ---
Patient: GUCCI HEADLEY Medication Reconciliation Report [facility] VisitID: [id number] [address] [place] [address] 20y, F Registration Date/Time: 10/31/2016 Weight: 99.7 kg Height/Length: 71 in. BMI: 30.7 ALLERGIES: No Known Drug Allergy The patient's Home Medications are listed below: THE FOLLOWING MEDICATIONS NEED TO BE RECONCILED: Amoxicillin Oral 875mg , 2 x daily The source(s) of the original Home Medication information: patient The following Medications were given to the patient in the Emergency Department: TDAP [IM] IM 0.5 mL, administered: 10/31/2016 8:22:00 PM The following Medications were prescribed to the patient: Silvadene cream 1% : apply to affected area daily. Dispense twenty (20) grams. No refill. Substitution is permissible -- Valentin Bangura MD
--- NOTE | 2016-11-03 13:00 | ED MAR SUMMARY ---
..... Medication Administration Record [facility] [address] [place] [address] Patient: GUCCI HEADLEY Visit ID: [id number] 20y, F Weight: 99.7 kg Height/Length: 71 in BMI: 30.7 ALLERGIES: No Known Drug Allergy Given 20:22 10/31/2016 Corky Escobedo RJoaquinaNJoaquina Medication Administered: TDAP [IM], Dose: 0.5 mL IM. Medication Ordered: Tdap IM 0.5 mL (NOW).
--- NOTE | 2016-11-03 13:00 | ED MAR SUMMARY ---
..... Medication Administration Record [facility] [address] [place] [address] Patient: GUCCI HEADLEY Visit ID: [id number] 20y, F Weight: 99.7 kg Height/Length: 71 in BMI: 30.7 ALLERGIES: No Known Drug Allergy Given 20:22 10/31/2016 Corky Escobedo RJoaquinaNJoaquina Medication Administered: TDAP [IM], Dose: 0.5 mL IM. Medication Ordered: Tdap IM 0.5 mL (NOW).
== END 2016-10-31 20:29 | disposition home or self-care (01) ==
LOC: ED SRH 19:23
DX: T23.221A Burn of second degree of single right finger (nail) except thumb, initial encounter (principal); T24.232A Burn of second degree of left lower leg, initial encounter; T31.0 Burns involving less than 10% of body surface; X14.1XXA Other contact with hot air and other hot gases, initial encounter; Y93.G3 Activity, cooking and baking; Y99.8 Other external cause status; Y92.9 Unspecified place or not applicable; Z23 Encounter for immunization